=== PATIENT | male | born 1975 | race Caucasian/White ===

== ENCOUNTER 2019-08-17 15:58 | Emergency (ER) | payer BC ==
[~2019-08-17] VITALS: Ht 152.4 cm; Wt 77.2 kg
[2019-08-17 16:12] VITALS: BP 127/75
[2019-08-17] MEDS ORDERED: IBUPROFEN 400 MG TAB PO ONE (16:25)
[2019-08-17] MEDS ORDERED: ACETAMINOPHEN 325 MG TAB PO ONE (16:25)
--- NOTE | 2019-08-17 16:47 | NUR ---
43 Y/O M C/C COUGH/SORE THROAT X1 DAY. PER PT PAIN 10/26, HAS NOT TAKEN MEDICATION AT HOME. CLEAR LUNG SOUNDS BILATERAL. DENIES SOB. VACCINATIONS UP TO DATE/FAMILY SICK AT HOME. PT NKA. NO HX. NO RX. NO N/V/D. SIDE RAIL X1.
--- NOTE | 2019-08-17 17:00 | NUR ---
PT RESTING IN BED, SIDE RAIL X1
[2019-08-17 17:15] VITALS: BP 128/72
--- NOTE | 2019-08-17 17:15 | NUR ---
Patient discharged with v/s stable. Written and verbal after care instructions given and explained. Patient alert, oriented and verbalized understanding of instructions. Ambulatory with steady gait. All questions addressed prior to discharge. ID band removed. Patient advised to follow up with PMD. Rx of ACETAMINOPHEN,TAMIFLU,IBUPROFEN,PROMETHAZINE given. Patient educated on indication of medication including possible reaction and side effects. Opportunity to ask questions provided and answered.
== END 2019-08-17 17:15 | disposition home or self-care (01) ==
LOC: MED 15:58
DX: R05 Cough (principal); J02.9 Acute pharyngitis, unspecified; M79.10 Myalgia, unspecified site
CPT/HCPCS: 99283

== ENCOUNTER 2022-11-24 21:22 | Emergency (ER) | payer BC, OTHER ==
[~2022-11-24] VITALS: Ht 165.1 cm; Wt 74.8 kg
[2022-11-24 21:45] VITALS: BP 128/89
--- NOTE | 2022-11-24 21:48 | NUR ---
TO LOBBY A/W BED AMBULATORY
--- NOTE | 2022-11-24 22:30 | NUR ---
PT TO BED #1
--- NOTE | 2022-11-24 22:44 | NUR ---
Patient resting in bed, A/Ox4, chest rise and fall symmetrical, no s/s of distress, on monitor. Addendum: 11/24/22 at 2244 by [id number] Patient resting in bed, A/Ox4, chest rise and fall symmetrical, no c/o pain or s/s of distress, on monitor.
--- NOTE | 2022-11-24 23:00 | NUR ---
Dr. Neumann at bedside assessing patient.
[2022-11-24] MEDS ORDERED: AZIT250T4 PO (23:30)
[2022-11-24] MEDS ORDERED: ROB PO (23:30)
--- NOTE | 2022-11-25 00:14 | NUR ---
Note lea in EDM - 11/25/22 at 0015 by [email or web address] Patient discharged with v/s stable. Written and verbal after care instructions given and explained. Patient alert, oriented and verbalized understanding of instructions. Ambulatory with steady gait. All questions addressed prior to discharge. ID band removed. Patient advised to follow up with PMD. Rx given to patient. Patient educated on indication of medication including possible reaction and side effects. Opportunity to ask questions provided and answered.
[2022-11-25 00:15] VITALS: BP 118/72
== END 2022-11-25 00:15 | disposition home or self-care (01) ==
LOC: MED 21:22
DX: J20.9 Acute bronchitis, unspecified (principal); Z79.899 Other long term (current) drug therapy; Z79.2 Long term (current) use of antibiotics
CPT/HCPCS: 71045; 99283; Q0092

== ENCOUNTER 2022-12-18 10:23 | Emergency (ER) | payer OTHER ==
[~2022-12-18] VITALS: Ht 157.5 cm; Wt 74.8 kg
[~2022-12-18 10:23] MED LIST: AZIT250T4 PO; ROB PO
[2022-12-18 10:32] VITALS: BP 123/87; PULSE 115; RESP 20; TEMP 98; O2SAT 98
[2022-12-18] MEDS ORDERED: BENZ200C4 PO (10:54)
[2022-12-18] MEDS ORDERED: ALBU0.0912 INH (10:54)
[2022-12-18] MEDS ORDERED: PRED20TA5 PO (10:54)
--- NOTE | 2022-12-18 10:54 | NUR ---
Patient being evaluated by SHANTELLE at [facility]
[2022-12-18 11:47] VITALS: O2SAT 98
--- NOTE | 2022-12-18 11:48 | NUR ---
Patient discharged with v/s stable. Written and verbal after care instructions given and explained. Patient alert, oriented and verbalized understanding of instructions. Ambulatory with steady gait. All questions addressed prior to discharge. ID band removed. Patient advised to follow up with PMD. Rx of PREDNISONE, ALBUTEROL given. Patient educated on indication of medication including possible reaction and side effects. Opportunity to ask questions provided and answered.
== END 2022-12-18 11:46 | disposition home or self-care (01) ==
LOC: MED 10:23
DX: J20.9 Acute bronchitis, unspecified (principal); Z79.899 Other long term (current) drug therapy
CPT/HCPCS: 99283

== ENCOUNTER 2023-10-31 21:14 | Emergency (ER) | payer OTHER ==
[~2023-10-31] VITALS: Ht 157.5 cm; Wt 76.2 kg
[~2023-10-31 21:14] MED LIST changes: +ALBU0.0912 INH; +BENZ200C4 PO; +PRED20TA5 PO
[2023-10-31 22:37] VITALS: BP 124/84; PULSE 73; RESP 18; TEMP 97.1; O2SAT 98
[2023-11-01 01:30] VITALS: BP 124/84; PULSE 73; RESP 18; TEMP 97.1; O2SAT 98
== END 2023-11-01 01:30 | disposition home or self-care (01) ==
LOC: MED 21:14
DX: R20.2 Paresthesia of skin (principal); M54.12 Radiculopathy, cervical region; Z79.899 Other long term (current) drug therapy
CPT/HCPCS: 72050; 99283